=== PATIENT | female | born 1990 | race African-American/Black ===

== ENCOUNTER → 2016-09-25 | Outpatient (CLI) | payer MEDICAID ==
[~2016-09-25] MED LIST: ASPI81CH7 CHEW; BACT800T5 PO; IBUP-232 PO; IRON18TA2 PO; LABE300T PO; OXYC1TAB63 PO; PNVPAK
== END ==
LOC: HPND 13:14
PROVIDERS: ATTEND Obstetrics & Gynecology
DX: O36.60X0 Maternal care for excessive fetal growth, unspecified trimester, not applicable or unspecified (principal)
CPT/HCPCS: 76816

== ENCOUNTER 2016-10-07 12:26 | Observation (INO) | payer MEDICAID ==
[2016-10-07] VITALS (9 sets, daily range): BP systolic 128–141; BP diastolic 67–90; PULSE 76–92; RESP 18; TEMP 98.5
[~2016-10-07] VITALS: Ht 167.6 cm; Wt 94.8 kg
[~2016-10-07 12:26] MED LIST changes: -ASPI81CH7 CHEW; -IBUP-232 PO; -IRON18TA2 PO; -LABE300T PO; -OXYC1TAB63 PO; -PNVPAK
[2016-10-07 13:04] LABS: HEMATOCRIT 25.7 % (35.0-46.0); MEAN CELL VOLUME 83.4 FL (80.0-100.0); MEAN CORPUSCULAR HEMOGLOBIN 29.5 PG (27.0-34.0); MEAN CORPUSCULAR HGB CONC 35.4 % (32.0-36.0); PLATELET COUNT 141 TH/MM3 (150-450); RED BLOOD COUNT 3.08 MIL/MM3 (4.00-5.30); RED CELL DISTRIBUTION WIDTH 13.8 % (11.6-17.2); REVIEW FLAG FINAL; WHITE BLOOD COUNT 5.2 TH/MM3 (4.0-11.0)
[2016-10-07 13:19] LABS: BACTERIA, URINE RARE /hpf; BLOOD, URINE NEG (NEG); GLUCOSE,URINE NEG (NEG); KETONE, URINE NEG (NEG); NITRITE,URINE NEG (NEG); PH, URINE 7.5 (5.0-8.5); SQUAMOUS EPITHELIAL CELL URINE 3 /hpf (0-5); URINE COLOR YELLOW (YELLW/STRAW)
[2016-10-07 13:21] LABS: COMMENT (UR) CULT NOT INDICATED; CULTURE IF INDICATED CULT NOT INDICATED
[2016-10-07 13:36] LABS: ALKALINE PHOSPHATASE 85 U/L (45-117); ALT (GPT) 59 U/L (10-53); ANION GAP 9 MEQ/L (5-15); AST (GOT) 91 U/L (15-37); BLOOD UREA NITROGEN 3 MG/DL (7-18); CHLORIDE 104 MEQ/L (98-107); GLOMERULAR FILTRATION RATE 189 ML/MIN (>89); SODIUM (NA) 141 MEQ/L (136-145); TOTAL BILIRUBIN ADULT 0.2 MG/DL (0.2-1.0); URIC ACID 2.7 MG/DL (2.6-6.0)
[2016-10-07 13:39] LABS: POTASSIUM 2.7 MEQ/L (3.5-5.1)
[2016-10-07] MEDS ORDERED: ALUMINUM/MAGNESIUM/SIMETH 30 ML CUP PO PRN (14:00)
[2016-10-07] MEDS ORDERED: ONDANSETRON ODT 4 MG TAB PO PRN (14:00)
[2016-10-07] MEDS ORDERED: ZOLPIDEM TARTRATE 5 MG TAB PO PRN (14:00)
--- NOTE | 2016-10-07 14:10 | PD ---
HPI Chief Complaint elevated blood pressure, sent from OB office Date Seen: Oct 07, 2016 Time Seen: 14:00 Travel History International Travel<30 Days: No Contact w/Intl Traveler<30Days: No Known Affected Area: No History of Present Illness HPI Pt is a 26 y/o with IUP at 33w4d by GEORGE who presents from OB office for evaluation of elevated BP (140/92 in office). Pt reports intermittent mild headache past week, has very slight headache at present. Pt denies vision changes, ruq pain, swelling in fingers or face. She reports intermittent BH contractions. She denies vb, lof. +FM Para: 2 : 4 Miscarriage: 1 History Past Medical History Medical History: Denies Significant Hx Obstetric History Obstetric History 2008 FT at 40 wks for breech 2013 repeat CD at 37 wks for preeclampsia 2016 SAB at 13 wks Past Surgical History Narrative Surgical x 2 D+C Social History Alcohol Use: No Tobacco Use: No Substance Abuse: No Allergies-Medications (Allergen,Severity, Reaction): Coded Allergies: Tomato (Verified Allergy, Severe, HIVES, 11/25/15) Home Meds Active Scripts Sulfamethoxazole-Trimethoprim DS (Bactrim DS)1 Tab Tab1 Tab PO BID #6 TAB Prov:Amari Montemayor DO 11/25/15 Review of Systems General / Constitutional: No: Fever, Weight Gain, Weight Loss, Chills, Other Eyes: No: Diploplia, Blurred Vision, Visual changes, Pain, Photophobia, Other HENT: Headaches, No: Vertigo, Dental Difficulties, Lightheadedness, Other Cardiovascular: No: Irregular Rhythm, Chest Pain or Discomfort, Palpitations, Tachycardia, Syncope, Varicosities, Edema, Cyanosis, Other Respiratory: No: Cough, Short of Breath, Wheezing, Other Gastrointestinal: No: Nausea, Vomiting, Diarrhea, Abdominal Pain, Hematemesis, Hematochezia, Constipation, Changes in Bowel Habits, Indigestion, Loss of Appetite, Other Genitourinary: No: Urgency, Frequency, Dysuria, Nocturia, Hematuria, Decreased Urinary Output, Oliguria, Hesitancy, Dribbling, Incontinence, Pelvic Pain, Dyspareunia, Discharge, Menorrhagia, Vaginal Bleeding, Other Musculoskeletal: No: Limited ROM, Weakness, Cramping, Edema, Pain, Other Skin: No Rash, No Itching, No Dryness, No Lumps, No Change in Pigmentation, No Change in Nails, No Alopecia, No Lesions, No Breast Lumps, No Breast Tenderness , No Breast Swelling, No Other Neurologic: No: Weakness, Dizziness, Syncope, Focal Abnormalities, Coordination Problem, Headache, Slurred Speech, Seizures, Other Psychiatric: No: Anxiety, Depression, Suicidal Ideations, Disorder of Thought, Mood Disorder, Substance Abuse, Homicidal Ideation, Other Endocrine: No: Heat Intolerance, Cold Intolerance, Polydipsia, Polyuria, Other Hematologic/Lymphatic: No Easy Bruising, No Lymph Node Enlargement, No Other Physical Exam Vital Signs Date Time Temp Pulse Resp B/P Pulse Ox O2 Delivery O2 Flow Rate FiO2 10/07/16 13:15 76 131/77 10/07/16 13:00 78 131/78 10/07/16 12:47 80 133/80 Narrative GENERAL: Well-nourished, well-developed patient. SKIN: Warm and dry. HEAD: Normocephalic and atraumatic. EYES: No scleral icterus. No injection or drainage. ENT: No nasal drainage noted. Mucous membranes pink. Airway patent. NECK: Supple, trachea midline. No JVD. CARDIOVASCULAR: Regular rate and rhythm without murmurs, gallops, or rubs. RESPIRATORY: Breath sounds equal bilaterally. No accessory muscle use. ABDOMEN/GI: Abdomen soft, non-tender, bowel sounds present, no rebound, no guarding gravid GENITOURINARY: deferred Uterine Contractions: irritability FHT's: Category: [1-] Baseline: 120s Reactive: yes Variability: mod Decels: no EXTREMITIES: No cyanosis or edema. BACK: Nontender without obvious deformity. No CVA tenderness. NEUROLOGICAL: Awake and alert. Motor and sensory grossly within normal limits. Five out of 5 muscle strength in all muscle groups. Normal speech. 2+ patellar DTRs, no clonus Data Data Vital Signs Reviewed: Yes Orders Vital Signs (Adult) .ON ADMISSION (10/07/16 12:44) ^ Labor Status (10/07/16 12:44) Urinalysis - C+S If Indicated (10/07/16 12:44) ^ Non Stress Test (10/07/16 12:44) Cbc No Diff, Includes Plts (10/07/16 12:44) Comprehensive Metabolic Panel (10/07/16 12:44) Uric Acid (10/07/16 12:44) Ob (2e) Additional Admit Info (10/07/16 13:48) Place In Observation (10/07/16 ) Diet Regular Basic (10/07/16 Lunch) Vital Signs (Adult) MUSA.D1C-VJQPB AWAKE (10/07/16 13:49) ^ Heart MUSA.QSHIFT (10/07/16 13:49) ^ Heart MUSA.QD (10/07/16 13:49) Activity Bed Rest With Brp (10/07/16 13:49) Complete Blood Count With Diff (10/08/16 06:00) Hepatic Functional Panel (10/08/16 06:00) Creatinine Clearance (10/07/16 13:49) Total Protein 24hr Urine (10/07/16 13:49) Uric Acid (10/08/16 06:00) Acetaminophen (Tylenol) (10/07/16 14:00) Twunygck-Fka-Mczbp-Iron Prenat (Stuartna (10/08/16 09:00) Docusate Sodium (Colace) (10/08/16 09:00) Al-Mag Hy-Si 40-40-4 Mg/Ml Liq (Mag-Al P (10/07/16 14:00) Sodium Chloride 0.9% Flush (Ns Flush) (10/07/16 21:00) Sodium Chloride 0.9% Flush (Ns Flush) (10/07/16 14:00) Zolpidem (Ambien) (10/07/16 14:00) Ondansetron Odt (Zofran Odt) (10/07/16 14:00) Ondansetron Inj (Zofran Inj) (10/07/16 14:00) Ferrous Sulfate (Ferrous Sulfate) (10/07/16 21:00) Labs Laboratory Tests Test 10/07/16 10/07/16 12:35 12:43 Urine Color YELLOW Urine Turbidity CLEAR Urine pH 7.5 Urine Specific [place] 1.010 Urine Protein NEG Urine Glucose (UA) NEG Urine Ketones NEG Urine Occult Blood NEG Urine Nitrite NEG Urine Bilirubin NEG Urine Urobilinogen LESS THAN 2.0 Urine Leukocyte Esterase NEG Urine RBC LESS THAN 1 Urine WBC LESS THAN 1 Urine Squamous Epithelial 3 Cells Urine Bacteria RARE Microscopic Urinalysis Comment CULT NOT INDICATED White Blood Count 5.2 Red Blood Count 3.08 Hemoglobin 9.1 Hematocrit 25.7 Mean Corpuscular Volume 83.4 Mean Corpuscular Hemoglobin 29.5 Mean Corpuscular Hemoglobin 35.4 Concent Red Cell Distribution Width 13.8 Platelet Count 141 Mean Platelet Volume 9.5 Sodium Level 141 Potassium Level 2.7 Chloride Level 104 Carbon Dioxide Level 28.0 Anion Gap 9 Blood Urea Nitrogen 3 Creatinine 0.48 Estimat Glomerular Filtration 189 Rate Random Glucose 69 Uric Acid 2.7 Calcium Level 8.2 Total Bilirubin 0.2 Aspartate Amino Transf 91 (AST/SGOT) Alanine Aminotransferase 59 (ALT/SGPT) Alkaline Phosphatase 85 Total Protein 6.2 Albumin 2.6 MDM Medical Record Reviewed: Yes Narrative Course / MDM 26 y/o with IUP at 33.4 wks with mildly elevated blood pressures, h/o preeclampsia, and mildly low platelets at 141k (were also low from office 09/12, 138k) and mildly elevated liver enzymes will admit 23 hr obs for rule out preeclampsia repeat labs in am serial blood pressures and vital signs 24 hour urine initiated FHTs q shift, NST daily Dr. Steven aware of patient and plan of care Diagnosis Diagnosis: Primary Impression: 33 weeks gestation of Additional Impression: Elevated blood pressure affecting in third trimester, antepartum Condition: Stable Kalee Siddiqi MD Oct 07, 2016 14:10
[2016-10-07] MEDS: SODIUM CHLORIDE 0.9% FLUSH 5 ML FLUSH IVF SCH (21:00)
[2016-10-07] MEDS: FERROUS SULFATE 325 MG (65 MG ELEMENTAL IRON) TAB PO SCH (21:04)
[2016-10-08] VITALS (78 sets, daily range): BP systolic 125–139; BP diastolic 60–84; PULSE 70–96; RESP 16–18; TEMP 98.4–98.6
[2016-10-08 06:06] LABS: AUTOMATED NEUTROPHIL # 3.5 TH/MM3 (1.8-7.7); BASOPHIL % 0.3 % (0.0-2.0); EOSINOPHIL # 0.1 TH/MM3 (0-0.4); EOSINOPHIL % 1.3 % (0.0-4.0); HEMATOCRIT 24.8 % (35.0-46.0); HEMO FLAGS DIFF FINAL; LYMPH % 26.6 % (9.0-44.0); LYMPHOCYTE # 1.5 TH/MM3 (1.0-4.8); MEAN CELL VOLUME 83.3 FL (80.0-100.0); MEAN CORPUSCULAR HEMOGLOBIN 28.7 PG (27.0-34.0); MEAN CORPUSCULAR HGB CONC 34.5 % (32.0-36.0); MONO % 9.9 % (0.0-8.0); NEUT % 61.9 % (16.0-70.0); PLATELET COUNT 133 TH/MM3 (150-450); RED BLOOD COUNT 2.98 MIL/MM3 (4.00-5.30); WHITE BLOOD COUNT 5.6 TH/MM3 (4.0-11.0)
[2016-10-08 06:35] LABS: INDIRECT BILIRUBIN 0.1 MG/DL (0.0-0.8); TOTAL BILIRUBIN ADULT 0.2 MG/DL (0.2-1.0)
[2016-10-08] MEDS: SODIUM CHLORIDE 0.9% FLUSH 5 ML FLUSH IVF SCH ×2 (09:00→21:00)
[2016-10-08] MEDS: FERROUS SULFATE 325 MG (65 MG ELEMENTAL IRON) TAB PO SCH ×2 (09:00→20:58)
[2016-10-08] MEDS: MULTIVIT/MIN/PREN/FOL AC/IRON PRENATAL TAB PO SCH (10:07)
[2016-10-08] MEDS: DOCUSATE SODIUM 100 MG CAP PO SCH (10:07)
[2016-10-08 10:37] LABS: BICARBONATE 24.8 MEQ/L (21.0-32.0)
[2016-10-08 10:44] LABS: POTASSIUM 2.6 MEQ/L (3.5-5.1)
[2016-10-08 11:04] LABS: RETIC % 1.8 % (0.4-3.0); REVIEW FLAG FINAL
[2016-10-08 11:33] LABS: LDH SERUM 294 U/L (84-246)
[2016-10-08 11:59] LABS: FERRITIN 9 NG/ML (8-252); TRANSFERRIN IRON PROFILE 340 MG/DL (200-360)
[2016-10-08] MEDS: POTASSIUM CHLOR 10 MEQ PREMIX 100 ML IV SCH ×7 (12:13→23:11)
[2016-10-08] MEDS: LACTATED RINGER'S 1000 ML INJ 1,000 ML IV SCH ×2 (12:14→18:38)
[2016-10-08] MEDS: ONDANSETRON HCL 4 MG/2 ML VIAL IV PRN (13:22)
[2016-10-08 16:25] LABS: CREAT 24 TIMED 141.6 MG/DL; URINE TOTAL PROTEIN TIMED 29.5 MG/DL
[2016-10-08] MEDS ORDERED: IRON SUCROSE INJ 200 MG in SODIUM CHLORIDE 0.9% INJ 100 ML IV ONE (17:00)
[2016-10-08] MEDS: ACETAMINOPHEN 325 MG TAB PO PRN (18:39)
[2016-10-08 19:25] LABS: BICARBONATE 28.1 MEQ/L (21.0-32.0)
[2016-10-08 19:31] LABS: POTASSIUM 2.9 MEQ/L (3.5-5.1)
--- NOTE | 2016-10-08 20:04 | HHI.PR ---
Subjective Remarks Doing ok Small headache Good fm Objective Vital Signs Date Time Temp Pulse Resp B/P Pulse Ox O2 Delivery O2 Flow Rate FiO2 10/08/16 19:46 98.6 18 10/08/16 19:44 75 135/84 10/08/16 17:00 81 138/78 10/08/16 16:00 98.5 17 10/08/16 15:30 85 10/08/16 15:25 82 10/08/16 15:20 78 10/08/16 15:15 79 10/08/16 15:10 79 10/08/16 15:05 80 10/08/16 15:00 75 10/08/16 14:55 84 10/08/16 14:35 94 10/08/16 14:30 93 10/08/16 14:25 83 10/08/16 14:20 75 10/08/16 14:15 75 10/08/16 14:10 85 10/08/16 14:05 89 10/08/16 14:00 74 10/08/16 13:55 72 10/08/16 13:50 77 10/08/16 13:45 80 10/08/16 13:40 87 10/08/16 13:35 78 10/08/16 13:30 81 10/08/16 13:25 79 10/08/16 13:20 80 10/08/16 13:15 80 10/08/16 13:10 79 10/08/16 13:05 86 10/08/16 13:00 96 10/08/16 12:50 72 10/08/16 12:45 78 10/08/16 12:40 79 10/08/16 12:35 79 10/08/16 12:30 81 10/08/16 12:25 76 10/08/16 12:20 84 10/08/16 12:19 80 139/78 10/08/16 12:15 82 10/08/16 12:10 77 10/08/16 12:05 82 10/08/16 12:00 73 10/08/16 11:55 73 10/08/16 11:50 74 10/08/16 11:45 76 10/08/16 11:40 75 10/08/16 11:35 77 10/08/16 11:30 70 10/08/16 11:25 73 10/08/16 11:20 83 10/08/16 11:15 84 10/08/16 11:10 84 10/08/16 11:05 84 10/08/16 11:00 90 10/08/16 10:55 81 10/08/16 10:50 86 10/08/16 10:45 76 10/08/16 10:40 78 10/08/16 10:35 82 10/08/16 10:30 88 10/08/16 10:25 81 10/08/16 10:20 85 10/08/16 10:15 86 10/08/16 10:10 91 10/08/16 10:05 91 10/08/16 10:00 84 10/08/16 09:55 83 10/08/16 09:50 85 10/08/16 09:45 84 10/08/16 08:18 98.4 18 10/08/16 08:07 78 139/74 10/08/16 06:54 16 10/08/16 05:00 18 10/08/16 03:00 16 10/08/16 01:00 98.4 10/08/16 01:00 16 10/08/16 00:03 85 125/60 10/07/16 21:15 85 Result Diagram: 10/08/16 0511 10/08/16 1835 Other Results Chest is clear CV RRR Abd soft and gravid Ext No cc, small le edema Assessment and Plan Discussed Condition With IUP @ 33/4 Pre eclampsia concerned about her LFTs being elevated and her Plts are slg low. Hypokalemia, Will replace overnite and check in the am, Will also check her MG level Severe anemia will replace the fe IV. also the b12 is low. Freddy Steven MD Oct 08, 2016 20:04
[2016-10-09] MEDS: POTASSIUM CHLOR 10 MEQ PREMIX 100 ML IV SCH ×8 (00:11→23:13)
[2016-10-09 00:15] VITALS: BP 120/68; PULSE 80; RESP 18
[2016-10-09] MEDS: ACETAMINOPHEN 325 MG TAB PO PRN ×2 (01:07→08:05)
[2016-10-09] MEDS: LACTATED RINGER'S 1000 ML INJ 1,000 ML IV SCH ×2 (02:20→10:52)
[2016-10-09 06:04] LABS: AUTOMATED NEUTROPHIL # 3.1 TH/MM3 (1.8-7.7); BASOPHIL % 0.3 % (0.0-2.0); EOSINOPHIL # 0.1 TH/MM3 (0-0.4); EOSINOPHIL % 1.7 % (0.0-4.0); HEMATOCRIT 23.6 % (35.0-46.0); HEMO FLAGS DIFF FINAL; LYMPH % 28.1 % (9.0-44.0); LYMPHOCYTE # 1.5 TH/MM3 (1.0-4.8); MEAN CELL VOLUME 83.1 FL (80.0-100.0); MEAN CORPUSCULAR HEMOGLOBIN 29.6 PG (27.0-34.0); MEAN CORPUSCULAR HGB CONC 35.6 % (32.0-36.0); MONO % 12.6 % (0.0-8.0); NEUT % 57.3 % (16.0-70.0); PLATELET COUNT 122 TH/MM3 (150-450); RED BLOOD COUNT 2.84 MIL/MM3 (4.00-5.30); RED CELL DISTRIBUTION WIDTH 14.1 % (11.6-17.2); WHITE BLOOD COUNT 5.4 TH/MM3 (4.0-11.0)
[2016-10-09 06:34] LABS: ALKALINE PHOSPHATASE 75 U/L (45-117); ALT (GPT) 40 U/L (10-53); ANION GAP 8 MEQ/L (5-15); AST (GOT) 55 U/L (15-37); BICARBONATE 25.2 MEQ/L (21.0-32.0); BLOOD UREA NITROGEN 2 MG/DL (7-18); CHLORIDE 108 MEQ/L (98-107); GLOMERULAR FILTRATION RATE 215 ML/MIN (>89); SODIUM (NA) 141 MEQ/L (136-145); TOTAL BILIRUBIN ADULT 0.2 MG/DL (0.2-1.0)
[2016-10-09 06:35] LABS: POTASSIUM 2.9 MEQ/L (3.5-5.1)
--- NOTE | 2016-10-09 07:55 | HHI.PR ---
Subjective Remarks Doing ok Small headache Good fm, no RUC Has been vomiting once daily lately. No scotoma or RUQ pain. Objective Vital Signs Date Time Temp Pulse Resp B/P Pulse Ox O2 Delivery O2 Flow Rate FiO2 10/09/16 00:15 80 18 120/68 10/08/16 19:46 98.6 18 10/08/16 19:44 75 135/84 10/08/16 19:40 18 10/08/16 17:00 81 138/78 10/08/16 16:00 98.5 17 10/08/16 15:30 85 10/08/16 15:25 82 10/08/16 15:20 78 10/08/16 15:15 79 10/08/16 15:10 79 10/08/16 15:05 80 10/08/16 15:00 75 10/08/16 14:55 84 10/08/16 14:35 94 10/08/16 14:30 93 10/08/16 14:25 83 10/08/16 14:20 75 10/08/16 14:15 75 10/08/16 14:10 85 10/08/16 14:05 89 10/08/16 14:00 74 10/08/16 13:55 72 10/08/16 13:50 77 10/08/16 13:45 80 10/08/16 13:40 87 10/08/16 13:35 78 10/08/16 13:30 81 10/08/16 13:25 79 10/08/16 13:20 80 10/08/16 13:15 80 10/08/16 13:10 79 10/08/16 13:05 86 10/08/16 13:00 96 10/08/16 12:50 72 10/08/16 12:45 78 10/08/16 12:40 79 10/08/16 12:35 79 10/08/16 12:30 81 10/08/16 12:25 76 10/08/16 12:20 84 10/08/16 12:19 80 139/78 10/08/16 12:15 82 10/08/16 12:10 77 10/08/16 12:05 82 10/08/16 12:00 73 10/08/16 11:55 73 10/08/16 11:50 74 10/08/16 11:45 76 2/22/17 11:40 75 10/08/16 11:35 77 10/08/16 11:30 70 10/08/16 11:25 73 10/08/16 11:20 83 10/08/16 11:15 84 10/08/16 11:10 84 10/08/16 11:05 84 10/08/16 11:00 90 10/08/16 10:55 81 10/08/16 10:50 86 10/08/16 10:45 76 10/08/16 10:40 78 10/08/16 10:35 82 10/08/16 10:30 88 10/08/16 10:25 81 10/08/16 10:20 85 10/08/16 10:15 86 10/08/16 10:10 91 10/08/16 10:05 91 10/08/16 10:00 84 10/08/16 09:55 83 10/08/16 09:50 85 10/08/16 09:45 84 10/08/16 08:18 98.4 18 10/08/16 08:07 78 139/74 Result Diagram: 10/09/16 0510/09/16 05 Other Results Chest is clear CV RRR Abd is soft and NT Fundus is NT Ext no CCE DTRs are +1 Assessment and Plan Assessment and Plan IUP at 33/6 Severe hypokalemia Her Mg level is normal and I feel she is just really depleted. Will give 6 runs of K today and check later Elevated LFTs these are normalizing I do not believe this represents HELLP syndrome. Thrombocytopenia Will continue to follow. Her BPs are not elevated from the care and she did have mild preeclampsia with both of her pregnancies. Also she has no swelling even in her legs and her DTRs are barely +1. Severe anemia will continue the venofer for three days total. Freddy Steven MD Oct 09, 2016 07:55
[2016-10-09 08:00] VITALS: BP 128/66; PULSE 83; RESP 20; TEMP 98.8
[2016-10-09] MEDS: FERROUS SULFATE 325 MG (65 MG ELEMENTAL IRON) TAB PO SCH ×2 (08:36→21:24)
[2016-10-09] MEDS: MULTIVIT/MIN/PREN/FOL AC/IRON PRENATAL TAB PO SCH (08:36)
[2016-10-09] MEDS: DOCUSATE SODIUM 100 MG CAP PO SCH (08:36)
[2016-10-09] MEDS: CYANOCOBALAMIN 100 MCG TAB PO SCH (08:36)
[2016-10-09] MEDS: IRON SUCROSE INJ 200 MG in SODIUM CHLORIDE 0.9% INJ 100 ML IV SCH (08:36)
[2016-10-09] MEDS ORDERED: IRON SUCROSE INJ 200 MG in SODIUM CHLORIDE 0.9% INJ 100 ML IV SCH (09:00)
[2016-10-09] MEDS: SODIUM CHLORIDE 0.9% FLUSH 5 ML FLUSH IVF SCH ×2 (09:00→23:12)
[2016-10-09 13:12] VITALS: BP 137/81; PULSE 75; RESP 18
[2016-10-09 16:33] VITALS: BP 133/82; PULSE 78
[2016-10-09] MEDS: SODIUM CHLORIDE 0.9% FLUSH 5 ML FLUSH IVF PRN (18:37)
[2016-10-09 19:21] VITALS: BP 146/84; PULSE 84
[2016-10-09 19:22] VITALS: RESP 18; TEMP 98.7
[2016-10-10] VITALS (13 sets, daily range): BP systolic 123–151; BP diastolic 64–95; PULSE 79–135; RESP 16–18; TEMP 97.9–98.4
[2016-10-10] MEDS: POTASSIUM CHLOR 10 MEQ PREMIX 100 ML IV SCH ×8 (00:16→20:42)
[2016-10-10] MEDS: ONDANSETRON HCL 4 MG/2 ML VIAL IV PRN (02:19)
[2016-10-10] MEDS: SODIUM CHLORIDE 0.9% FLUSH 5 ML FLUSH IVF PRN (02:19)
[2016-10-10 07:04] LABS: AUTOMATED NEUTROPHIL # 3.9 TH/MM3 (1.8-7.7); BASOPHIL % 0.2 % (0.0-2.0); EOSINOPHIL % 0.8 % (0.0-4.0); HEMO FLAGS DIFF FINAL; LYMPH % 23.5 % (9.0-44.0); LYMPHOCYTE # 1.4 TH/MM3 (1.0-4.8); MEAN CORPUSCULAR HEMOGLOBIN 29.1 PG (27.0-34.0); MEAN CORPUSCULAR HGB CONC 35.1 % (32.0-36.0); MONO % 10.6 % (0.0-8.0); NEUT % 64.9 % (16.0-70.0); PLATELET COUNT 113 TH/MM3 (150-450); RED BLOOD COUNT 2.77 MIL/MM3 (4.00-5.30); RED CELL DISTRIBUTION WIDTH 13.9 % (11.6-17.2)
[2016-10-10 07:43] LABS: ALKALINE PHOSPHATASE 76 U/L (45-117); ALT (GPT) 39 U/L (10-53); ANION GAP 7 MEQ/L (5-15); AST (GOT) 47 U/L (15-37); BICARBONATE 26.5 MEQ/L (21.0-32.0); BLOOD UREA NITROGEN 1 MG/DL (7-18); CHLORIDE 108 MEQ/L (98-107); GLOMERULAR FILTRATION RATE 248 ML/MIN (>89); MAGNESIUM 1.7 MG/DL (1.5-2.5); POTASSIUM 3.1 MEQ/L (3.5-5.1); SODIUM (NA) 141 MEQ/L (136-145); TOTAL BILIRUBIN ADULT 0.1 MG/DL (0.2-1.0)
[2016-10-10] MEDS ORDERED: BETAMETHASONE SOD PHOS/ACETATE SUSP 30 MG/5 ML VIAL IM ONE (09:00)
[2016-10-10] MEDS: DOCUSATE SODIUM 100 MG CAP PO SCH (09:00)
[2016-10-10] MEDS: SODIUM CHLORIDE 0.9% FLUSH 5 ML FLUSH IVF SCH (10:49)
[2016-10-10] MEDS: MULTIVIT/MIN/PREN/FOL AC/IRON PRENATAL TAB PO SCH (10:49)
[2016-10-10] MEDS: CYANOCOBALAMIN 100 MCG TAB PO SCH (10:49)
[2016-10-10] MEDS: FERROUS SULFATE 325 MG (65 MG ELEMENTAL IRON) TAB PO SCH (10:49)
[2016-10-10] MEDS: IRON SUCROSE INJ 200 MG in SODIUM CHLORIDE 0.9% INJ 100 ML IV SCH (10:50)
[2016-10-10] MEDS: ACETAMINOPHEN 325 MG TAB PO PRN (12:04)
[2016-10-10] MEDS ORDERED: LACTATED RINGER'S 1000 ML INJ 1,000 ML IV SCH ×2 (18:45→21:01)
[2016-10-11] MEDS ORDERED: BETAMETHASONE SOD PHOS/ACETATE SUSP 30 MG/5 ML VIAL IM ONE (09:00)
[2016-10-11 09:35] VITALS: BP 155/87; PULSE 82; RESP 18; TEMP 98.2
[2016-10-11] MEDS: CYANOCOBALAMIN 100 MCG TAB PO SCH (09:43)
[2016-10-11] MEDS: FERROUS SULFATE 325 MG (65 MG ELEMENTAL IRON) TAB PO SCH (09:44)
[2016-10-11] MEDS: MULTIVIT/MIN/PREN/FOL AC/IRON PRENATAL TAB PO SCH (09:44)
[2016-10-11 10:39] LABS: AUTOMATED NEUTROPHIL # 9.3 TH/MM3 (1.8-7.7); BASOPHIL % 0.1 % (0.0-2.0); HEMATOCRIT 25.5 % (35.0-46.0); LYMPHOCYTE # 1.5 TH/MM3 (1.0-4.8); MEAN CELL VOLUME 83.5 FL (80.0-100.0); MEAN CORPUSCULAR HEMOGLOBIN 28.3 PG (27.0-34.0); MEAN CORPUSCULAR HGB CONC 33.9 % (32.0-36.0); MONO % 7.4 % (0.0-8.0); NEUT % 79.5 % (16.0-70.0); PLATELET COUNT 143 TH/MM3 (150-450); RED BLOOD COUNT 3.06 MIL/MM3 (4.00-5.30); RED CELL DISTRIBUTION WIDTH 14.3 % (11.6-17.2); WHITE BLOOD COUNT 11.6 TH/MM3 (4.0-11.0)
[2016-10-11 10:45] LABS: HEMO FLAGS AUTO DIFF
[2016-10-11 11:18] LABS: BANDS 11 % (0-6); METAMYELOCYTES 2 % (0-1); MYELOCYTES 1 % (0-0); NEUTROPHIL # MANUAL DIFF 10.6 TH/MM3 (1.8-7.7); POLYS (SEG NEUTROPHILS) 77 % (16-70); WBC DIFF SAMPLE 100
[2016-10-11 11:19] LABS: OVALOCYTES 1+ (NORMAL); PLATELET ESTIMATE SMEAR LOW (NORMAL); PLATELET MORPHOLOGY NORMAL (NORMAL); SCAN/DIFF FINAL DIFF MANUAL
[2016-10-11 11:20] LABS: ANION GAP 10 MEQ/L (5-15); AST (GOT) 46 U/L (15-37); BICARBONATE 23.5 MEQ/L (21.0-32.0); BLOOD UREA NITROGEN LESS THAN 1 MG/DL (7-18); CHLORIDE 108 MEQ/L (98-107); GLOMERULAR FILTRATION RATE 233 ML/MIN (>89); POTASSIUM 3.3 MEQ/L (3.5-5.1); SODIUM (NA) 141 MEQ/L (136-145)
[2016-10-11 11:23] LABS: ALKALINE PHOSPHATASE 86 U/L (45-117); ALT (GPT) 44 U/L (10-53); TOTAL BILIRUBIN ADULT 0.2 MG/DL (0.2-1.0)
[2016-10-11 12:43] VITALS: BP 145/83; PULSE 83
[2016-10-11] MEDS: ACETAMINOPHEN 325 MG TAB PO PRN (12:49)
[2016-10-11 12:50] VITALS: RESP 20
--- NOTE | 2016-10-11 12:54 | HHI.PR ---
Subjective Remarks Doing ok, feeling much better. Good fm, no RUC. No scotoma or RUQ pain. Objective Vital Signs Date Time Temp Pulse Resp B/P Pulse Ox O2 Delivery O2 Flow Rate FiO2 10/11/16 09:35 82 155/87 10/11/16 09:35 98.2 18 10/10/16 23:00 18 10/10/16 22:44 82 151/86 10/10/16 19:11 16 10/10/16 19:10 135 10/10/16 19:08 89 139/89 10/10/16 17:14 81 148/64 10/10/16 17:14 16 10/10/16 17:14 98.4 10/10/16 13:04 18 Result Diagram: 10/11/16 0941 10/11/16 0941 Other Results Chest is clear CV RRR Abd soft and NT Ext no cce DTR +1/2 Assessment and Plan Assessment and Plan IUP at 34/1 Severe hypokalemia Her Mg level is normal and I feel she is just really depleted. It is now almost normal and will check a level next week Thrombocytopenia , Pancytopenia I feel this was due to a virus and is now resolving nicely. Her BPs are not elevated from the care and she did have mild preeclampsia with both of her pregnancies. Again I feel the syndrome here was due to a virus causing diarrhea and vomiting prior to admission. She was very depleted and now is on the mend. Also she has no swelling even in her legs and her DTRs are barely +1. Severe anemia will continue the venofer for three days total. We will check her labs next week. Freddy Steven MD Oct 11, 2016 12:54
--- NOTE | 2016-10-11 13:00 | HHI.DCPOC ---
Discharge Care Plan Diagnosis: (1) Elevated blood pressure affecting in third trimester, antepartum (2) Viral syndrome Report Symptoms to Your Doctor -Temperate above 100.5 degrees -Redness, of incision or excessive or foul smelling drainage -Unusual pain or calf pain -Increased vaginal bleeding -Painful or difficulty urinating -Feelings of extreme sadness or anxiety after 2 weeks Goals to Promote Your Health * To prevent worsening of your condition and complications * To maintain your health at the optimal level Directions to Meet Your Goals Take your medications as prescribed Follow your dietary instruction Follow activity as directed Ensure plenty of rest for recovery Drink fluids for hydration Keep your appointments as scheduled Take your immunizations and boosters as scheduled If your symptoms worsen call your PCP, if no PCP go to Urgent Care Center or Emergency Room Smoking is Dangerous to Your Health. Avoid second hand smoke Call the 24-hour crisis hotline for domestic abuse at Freddy Steven MD Oct 11, 2016 13:00
== END 2016-10-11 16:07 | disposition home or self-care (01) ==
LOC: HOBED 12:26 → H2EA 13:56 → OBSVTOIN 10-08 20:08 → INTOOBSV 10-08 20:08
PROVIDERS: ADMIT Obstetrics & Gynecology; ATTEND Obstetrics & Gynecology
DX: O26.893 Other specified pregnancy related conditions, third trimester (principal); R03.0 Elevated blood-pressure reading, without diagnosis of hypertension; Z3A.33 33 weeks gestation of pregnancy; R51 Headache; O99.013 Anemia complicating pregnancy, third trimester; O99.283 Endocrine, nutritional and metabolic diseases complicating pregnancy, third trimester; D69.6 Thrombocytopenia, unspecified; E87.6 Hypokalemia; R11.10 Vomiting, unspecified
CPT/HCPCS: 36415; 59025; 76819; 80048; 80053; 80074; 80076; 81001; 82575; 82607; 82728; 82746; 82747; 83010; 83540; 83550; 83615; 83735; 84132; 84157; 84550; 85007; 85025; 85027; 85044; 99284; G0378; J0702; J1756; J2405; J3480; J7120

== ENCOUNTER → 2016-10-30 | Outpatient (CLI) | payer MEDICAID ==
[~2016-10-30] MED LIST changes: +ASPI81CH7 CHEW; +IBUP-232 PO; +IRON18TA2 PO; +LABE300T PO; +OXYC1TAB63 PO; +PNVPAK
== END ==
LOC: HPND 08:06
PROVIDERS: ATTEND Obstetrics & Gynecology
DX: O36.60X0 Maternal care for excessive fetal growth, unspecified trimester, not applicable or unspecified (principal)
CPT/HCPCS: 76816

== ENCOUNTER 2016-11-17 09:21 | Inpatient (IN) | payer MEDICAID ==
[~2016-11-17] VITALS: Ht 167.6 cm; Wt 99.3 kg
[2016-11-17] VITALS (17 sets, daily range): BP systolic 139–171; BP diastolic 82–103; PULSE 61–89; RESP 16–18; TEMP 97.7–98.5; O2SAT 96–99
[~2016-11-17 09:21] MED LIST changes: -ASPI81CH7 CHEW; -IBUP-232 PO; -IRON18TA2 PO; -LABE300T PO; -OXYC1TAB63 PO; -PNVPAK
[2016-11-17] MEDS ORDERED: LACTATED RINGER'S 1000 ML IV SCH (10:30)
[2016-11-17] MEDS ORDERED: CITRIC ACID-SODIUM CITRATE LIQ 30 ML UDC PO SCH (10:30)
[2016-11-17] MEDS ORDERED: ceFAZolin 2 GM PREMIX 50 ML IV SCH (10:30)
[2016-11-17] MEDS ORDERED: LACTATED RINGER'S 1000 ML IV ONE (10:30)
[2016-11-17 11:05] LABS: AUTOMATED NEUTROPHIL # 3.8 TH/MM3 (1.8-7.7); BASOPHIL % 0.2 % (0.0-2.0); EOSINOPHIL % 0.3 % (0.0-4.0); HEMATOCRIT 30.7 % (35.0-46.0); HEMO FLAGS DIFF FINAL; LYMPHOCYTE # 1.5 TH/MM3 (1.0-4.8); MEAN CELL VOLUME 86.1 FL (80.0-100.0); MEAN CORPUSCULAR HEMOGLOBIN 29.1 PG (27.0-34.0); MEAN CORPUSCULAR HGB CONC 33.8 % (32.0-36.0); MONO % 9.7 % (0.0-8.0); NEUT % 63.8 % (16.0-70.0); PLATELET COUNT 146 TH/MM3 (150-450); RED BLOOD COUNT 3.56 MIL/MM3 (4.00-5.30); RED CELL DISTRIBUTION WIDTH 15.5 % (11.6-17.2); WHITE BLOOD COUNT 5.9 TH/MM3 (4.0-11.0)
[2016-11-17 11:15] LABS: BACTERIA, URINE RARE /hpf; BLOOD, URINE NEG (NEG); GLUCOSE,URINE NEG (NEG); KETONE, URINE NEG (NEG); MUCUS URINE FEW /lpf (OCC); NITRITE,URINE NEG (NEG); SQUAMOUS EPITHELIAL CELL URINE 1 /hpf (0-5); TRANSITIONAL EPI CELLS, URINE <1 /hpf; URINE COLOR YELLOW (YELLW/STRAW)
[2016-11-17 11:28] LABS: COMMENT (UR) CULT NOT INDICATED; CULTURE IF INDICATED CULT NOT INDICATED
[2016-11-17] MEDS ORDERED: IRON18TA2 PO (11:31)
[2016-11-17] MEDS ORDERED: ASPI81CH7 CHEW (11:31)
[2016-11-17] MEDS ORDERED: PNVPAK (11:31)
[2016-11-17] MEDS ORDERED: MORPHINE SULFATE PF 5 MG/10 ML VIAL ONE (11:49)
[2016-11-17] MEDS ORDERED: ONDANSETRON HCL 4 MG/2 ML VIAL ONE ×2 (11:49→15:35)
[2016-11-17] MEDS ORDERED: OXYTOCIN 10 UNIT/ML AMP ONE (11:49)
[2016-11-17] MEDS ORDERED: PROPOFOL 200 MG/20 ML AMP OTHER ONE (12:35)
[2016-11-17] MEDS ORDERED: LACTATED RINGER'S 1000 ML INJ 1,000 ML IV ONE (12:35)
[2016-11-17] MEDS ORDERED: SIMETHICONE 80 MG CHEWABLE TAB PO PRN (14:30)
[2016-11-17] MEDS ORDERED: oxyCODONE/ACETAMINOPHEN 5 MG/325 MG TAB PO PRN (14:30)
[2016-11-17] MEDS ORDERED: ZOLPIDEM TARTRATE 5 MG TAB PO PRN (14:30)
[2016-11-17] MEDS ORDERED: OXYTOCIN 30 UNITS-500ML PREMIX 500 ML IV ONE ×2 (14:30)
[2016-11-17] MEDS ORDERED: SODIUM CHLORIDE 0.9% FLUSH 10 ML FLUSH IV FLUSH PRN (14:30)
[2016-11-17] MEDS ORDERED: ONDANSETRON HCL 4 MG/2 ML VIAL IV PUSH PRN (14:30)
[2016-11-17] MEDS ORDERED: OXYTOCIN 30 UNITS-500ML PREMIX 500 ML ONE (15:35)
[2016-11-17] MEDS ORDERED: EPIDURAL-NO SYSTEMIC NARCOTICS PRN (17:30)
[2016-11-17] MEDS ORDERED: EPIDURAL-NALOXONE HCL 0.4 MG/ML AMP IV PRN (17:30)
[2016-11-17] MEDS ORDERED: EPIDURAL-DO NOT ADMINISTER ANTICOAGULANTS PRN (17:30)
[2016-11-17] MEDS ORDERED: EPIDURAL-DIPHENHYDRAMINE HCL 50 MG CAP PO PRN (17:30)
[2016-11-17] MEDS ORDERED: EPIDURAL-DIPHENHYDRAMINE HCL 50 MG/ML VIAL IV PUSH PRN (17:30)
[2016-11-17] MEDS ORDERED: PROCHLORPERAZINE INJ 10 MG/2 ML VIAL IM PRN (18:30)
[2016-11-17] MEDS ORDERED: LACTATED RINGER'S 1000 ML INJ 1,000 ML IV SCH (19:23)
[2016-11-17] MEDS ORDERED: SODIUM CHLORIDE 0.9% FLUSH 10 ML FLUSH IV FLUSH SCH (21:00)
[2016-11-18] VITALS (12 sets, daily range): BP systolic 139–173; BP diastolic 78–104; PULSE 58–78; RESP 16–20; TEMP 98–98.9
[2016-11-18] MEDS ORDERED: OXYTOCIN 30 UNITS-500ML PREMIX 500 ML IV PRN (00:30)
[2016-11-18 04:57] LABS: AUTOMATED NEUTROPHIL # 9.4 TH/MM3 (1.8-7.7); BASOPHIL % 0.2 % (0.0-2.0); HEMATOCRIT 30.7 % (35.0-46.0); HEMO FLAGS DIFF FINAL; LYMPH % 10.9 % (9.0-44.0); LYMPHOCYTE # 1.2 TH/MM3 (1.0-4.8); MEAN CELL VOLUME 85.6 FL (80.0-100.0); MEAN CORPUSCULAR HEMOGLOBIN 28.2 PG (27.0-34.0); MEAN CORPUSCULAR HGB CONC 32.9 % (32.0-36.0); MONO % 6.2 % (0.0-8.0); NEUT % 82.7 % (16.0-70.0); PLATELET COUNT 135 TH/MM3 (150-450); RED BLOOD COUNT 3.59 MIL/MM3 (4.00-5.30); RED CELL DISTRIBUTION WIDTH 15.4 % (11.6-17.2); WHITE BLOOD COUNT 11.4 TH/MM3 (4.0-11.0)
[2016-11-18] MEDS: oxyCODONE/ACETAMINOPHEN 5 MG/325 MG TAB PO PRN ×4 (06:04→21:40)
[2016-11-18] MEDS: IBUPROFEN 600 MG TAB PO PRN ×3 (06:04→17:39)
--- NOTE | 2016-11-18 08:50 | MH ---
cc: Freddy FAIR DATE OF ADMISSION 11/17/2016 PREOPERATIVE DIAGNOSIS 1. Intrauterine at 39+ weeks 2. Previous section x2 HISTORY OF PRESENT ILLNESS Ms. Fernandez is a 26-year-old female para 2-0-1-2 who is at 39+ weeks. She has had previous two sections and desires a repeat. She is being brought to the operating theater for that surgery. She understands the risks and benefits and has agreed to proceed. PAST OB HISTORY She is para 2-0-1-2. She has a two sections and she had one miscarriage. 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 Her CP and GC were negative as well. PAST SURGICAL HISTORY Remarkable for: 1. section x2. 2. D&E for a missed AB PAST MEDICAL HISTORY Remarkable for: 1. Preeclampsia in her previous pregnancies. 2. Anemia SOCIAL HISTORY She lives with her spouse. She is . She does not smoke, drink or take drugs. FAMILY HISTORY Her family history is negative. ALLERGIES No known drug allergies. MEDICATIONS 1. Aspirin 81 mg one p.o. q. day 2. Iron one p.o. q. day 3. Vitamins one p.o. q. day. REVIEW OF SYSTEMS No headaches, no shortness of breath. No chest pain. No swelling. No rupture of membranes or bleeding. Her baby is moving well. PHYSICAL EXAM Her physical exam reveals a well-developed, well-nourished female in no acute distress. HEENT: Normocephalic, atraumatic. CHEST: Clear to auscultation. HEART: Regular rate and rhythm without murmur. ABDOMEN: Gravid and nontender. The scar is barely visible. EXTREMITIES: There is no clubbing, cyanosis or edema. ASSESSMENT/PLAN 1. Intrauterine at 39+ weeks for repeat section. Take her to the operating room and perform that. 2. History of preeclampsia. She has been on aspirin the entire . We will watch her blood pressures carefully. She needed to take labetalol with a previous pregnancies in the period and we will keep an eye on her blood pressures. 3. Positive GBS. She was treated with Ancef preoperatively. R. MD LASHAE France/DK /8:31 AM /8:37 AM
[2016-11-18] MEDS ORDERED: LABETALOL HCL 100 MG TAB PO SCH (09:00)
[2016-11-18] MEDS: DOCUSATE SODIUM 50 MG/SENNA 8.6 MG TAB PO PRN (12:11)
--- NOTE | 2016-11-18 13:28 | HHI.OB ---
Subjective Post Operative Day: 1 Objective Vitals/I&O Vital Signs Date Time Temp Pulse Resp B/P Pulse Ox O2 Delivery O2 Flow Rate FiO2 11/18/16 10:41 61 151/90 11/18/16 09:38 58 162/88 11/18/16 07:45 98.1 11/18/16 07:45 72 16 160/82 11/18/16 05:30 139/78 11/18/16 04:30 98.2 11/18/16 04:30 77 18 156/104 11/18/16 00:30 60 16 150/87 11/18/16 00:30 98.9 11/17/16 20:00 97.7 11/17/16 20:00 71 16 153/86 11/17/16 17:20 156/89 11/17/16 17:20 16 11/17/16 17:20 69 11/17/16 16:15 98.5 16 11/17/16 16:15 63 155/95 11/17/16 15:45 71 18 145/83 99 11/17/16 15:15 97 11/17/16 15:15 66 18 146/82 11/17/16 15:13 61 18 96 11/17/16 15:13 153/88 11/17/16 15:00 69 18 99 11/17/16 14:59 160/89 11/17/16 14:45 68 18 171/102 97 11/17/16 14:35 171/103 11/17/16 14:26 97.9 63 18 152/82 98 Result Diagram: 11/18/16 0449 Objective Remarks GENERAL: Well-nourished, well-developed patient. CARDIOVASCULAR: Regular rate and rhythm without murmurs, gallops, or rubs. RESPIRATORY: Breath sounds equal bilaterally. No accessory muscle use. ABDOMEN/GI: Abdomen soft, non-tender, bowel sounds present. Incision: DRESSING, Clean, dry and intact. Fundus: Firm, non-tender at umbilicus. GENITOURINARY: Light to moderate bleeding. EXTREMITIES: No cyanosis or edema, non-tender, without signs of DVT. Medications and IVs Current Medications Medications (Trade) Dose Ordered Sig/Carol Route Start Time Stop Time Status Last Admin Lactated Ringer's 1,000 ml @ 150 mls/hr Q6H40M IV 11/17/16 10:30 11/17/16 11:15 (Lr 1000 ml Inj) 1,000 ml @ 100 mls/hr Q10H IV 11/17/16 19:23 11/18/16 15:22 11/17/16 21:49 (NS Flush) 2 ml BID IV FLUSH 11/17/16 21:00 (NS Flush) 2 ml UNSCH PRN IV FLUSH 11/17/16 14:30 (Mylicon Chew) 80 mg QID PRN PO 11/17/16 14:30 (Motrin) 600 mg Q6H PRN PO 11/17/16 14:30 11/18/16 12:10 (Percocet 5-325 Mg) 1 tab Q4H PRN PO 11/17/16 14:30 11/18/16 12:10 (Percocet 5-325 Mg) 2 tab Q4H PRN PO 11/17/16 14:30 (Jennifer-Colace) 2 tab Q12H PRN PO 11/17/16 14:30 11/18/16 12:11 (Ambien) 5 mg HS PRN PO 11/17/16 14:30 (M-M-R Ii Inj) 0.5 ml ONCE ONCE SQ 11/18/16 16:00 11/18/16 16:01 (Boostrix Inj) 0.5 ml ONCE ONCE IM 11/18/16 16:00 11/18/16 16:01 (Zofran Inj) 4 mg Q6H PRN IV PUSH 11/17/16 14:30 11/17/16 15:36 Miscellaneous Information NO SYSTEMIC NARCOTICS TO BE GIVEN FO... UNSCH PRN .XX 11/17/16 17:30 11/18/16 17:29 (Narcan Inj) 0.4 mg UNSCH PRN IV 11/17/16 17:30 11/18/16 17:29 (Benadryl Inj) 25 mg Q6H PRN IV PUSH 11/17/16 17:30 11/18/16 17:29 (Benadryl) 50 mg Q6H PRN PO 11/17/16 17:30 11/18/16 17:29 Miscellaneous Information ALL NURSING DEPARTMENTS UNSCH PRN .XX 11/17/16 17:30 11/18/16 17:29 (Compazine Inj) 10 mg BID PRN IM 11/17/16 18:30 11/17/16 19:09 (Trandate) 100 mg Q12HR PO 11/18/16 09:00 11/18/16 08:47 Assessment/Plan Problem List: (1) S/P repeat low transverse Plan: ROUTINE (2) Anemia Plan: DAILY IRON PP (3) Gestational hyperglycemia Plan: START ON LABETALOL, MONITOR Assessment and Plan POD #1 REPEAT C/S PT DOING WELL BP ELEVATED, WILL START ON LABETALOL PAIN WELL MANAGED AMBULATION ENCOURAGED TODAY ROUTINE Discharge Planning CONSIDER DC HOME IN 1-2 DAYS Yolanda Stroud Nov 18, 2016 13:28
--- NOTE | 2016-11-18 13:39 | HHI.DCPOC ---
Discharge Care Plan Diagnosis: (1) Anemia (2) S/P repeat low transverse (3) Gestational hypertension Your Health Problems Are: delivery Additional Problems WILL NEED TO TAKE DAILY ORAL IRON ONCE YOU ARE NO LONGER TAKING PAIN MEDICATION Report Symptoms to Your Doctor -Temperate above 100.5 degrees -Redness, of incision or excessive or foul smelling drainage -Unusual pain or calf pain -Increased vaginal bleeding -Painful or difficulty urinating -Feelings of extreme sadness or anxiety after 2 weeks Goals to Promote Your Health * To prevent worsening of your condition and complications * To maintain your health at the optimal level Directions to Meet Your Goals Take your medications as prescribed Follow your dietary instruction Follow activity as directed Ensure plenty of rest for recovery Drink fluids for hydration Keep your appointments as scheduled Take your immunizations and boosters as scheduled If your symptoms worsen call your PCP, if no PCP go to Urgent Care Center or Emergency Room Smoking is Dangerous to Your Health. Avoid second hand smoke Call the 24-hour crisis hotline for domestic abuse at Yolanda Stroud Nov 18, 2016 13:39
[2016-11-18] MEDS ORDERED: DIPHTH/TETANUS/ACEL PERTUSSIS (BOOSTER) 0.5 ML VIAL/PFS IM ONE (16:00)
[2016-11-18] MEDS ORDERED: MEASLES, MUMPS, RUBELLA VACCINE 0.5 ML VIAL SQ ONE (16:00)
[2016-11-18] MEDS ORDERED: OXYC1TAB63 PO (17:43)
[2016-11-18] MEDS ORDERED: IBUP-232 PO (17:43)
[2016-11-18] MEDS ORDERED: LABETALOL HCL 100 MG/20 ML VIAL IV PUSH PRN (17:45)
[2016-11-18] MEDS ORDERED: NIFEdipine 10 MG CAP PO PRN (17:45)
[2016-11-18] MEDS ORDERED: CALCIUM GLUCONATE 10% 1 GM/10 ML VIAL IV PUSH PRN (17:45)
[2016-11-18] MEDS ORDERED: NIFEdipine 20 MG CAP PO PRN ×2 (17:45)
[2016-11-18] MEDS: LABETALOL HCL 100 MG TAB PO SCH (21:41)
[2016-11-19 00:30] VITALS: BP 142/88; PULSE 77; RESP 18; TEMP 98.5
[2016-11-19] MEDS: IBUPROFEN 600 MG TAB PO PRN ×4 (00:49→20:28)
[2016-11-19] MEDS: oxyCODONE/ACETAMINOPHEN 5 MG/325 MG TAB PO PRN ×4 (00:50→20:29)
[2016-11-19 06:00] VITALS: BP 154/89; PULSE 69; RESP 18
[2016-11-19] MEDS: DOCUSATE SODIUM 50 MG/SENNA 8.6 MG TAB PO PRN (06:18)
[2016-11-19 08:40] VITALS: BP 149/82; PULSE 66; RESP 18; TEMP 98.1
[2016-11-19] MEDS: LABETALOL HCL 100 MG TAB PO SCH ×2 (08:47→20:29)
--- NOTE | 2016-11-19 11:38 | HHI.OB ---
Subjective Post Operative Day: 2 Objective Vitals/I&O Vital Signs Date Time Temp Pulse Resp B/P Pulse Ox O2 Delivery O2 Flow Rate FiO2 11/19/16 08:40 98.1 66 18 149/82 11/19/16 06:00 69 18 154/89 11/19/16 00:30 98.5 77 18 142/88 11/18/16 21:00 98.0 78 20 150/87 11/18/16 18:21 76 11/18/16 18:10 153/87 11/18/16 16:27 98.6 18 11/18/16 16:00 169/90 11/18/16 15:55 70 173/103 Result Diagram: 11/18/16 0449 Objective Remarks GENERAL: Well-nourished, well-developed patient. CARDIOVASCULAR: Regular rate and rhythm without murmurs, gallops, or rubs. RESPIRATORY: Breath sounds equal bilaterally. No accessory muscle use. ABDOMEN/GI: Abdomen soft, non-tender, bowel sounds present. Incision: Clean, dry and intact. Fundus: Firm, non-tender at umbilicus. GENITOURINARY: Light to moderate bleeding. EXTREMITIES: No cyanosis or edema, non-tender, without signs of DVT. Medications and IVs Current Medications Medications (Trade) Dose Ordered Sig/Carol Route Start Time Stop Time Status Last Admin (Lr 1000 ml Inj) 1,000 ml @ 150 mls/hr Q6H40M IV 11/17/16 10:30 11/17/16 11:15 (NS Flush) 2 ml BID IV FLUSH 11/17/16 21:00 (NS Flush) 2 ml UNSCH PRN IV FLUSH 11/17/16 14:30 (Mylicon Chew) 80 mg QID PRN PO 11/17/16 14:30 (Motrin) 600 mg Q6H PRN PO 11/17/16 14:30 11/19/16 06:19 (Percocet 5-325 Mg) 1 tab Q4H PRN PO 11/17/16 14:30 11/19/16 06:20 (Percocet 5-325 Mg) 2 tab Q4H PRN PO 11/17/16 14:30 (Jennifer-Colace) 2 tab Q12H PRN PO 11/17/16 14:30 11/19/16 06:18 (Ambien) 5 mg HS PRN PO 11/17/16 14:30 (Zofran Inj) 4 mg Q6H PRN IV PUSH 11/17/16 14:30 11/17/16 15:36 (Compazine Inj) 10 mg BID PRN IM 11/17/16 18:30 11/17/16 19:09 (Calcium Gluconate Inj) 1 gm UNSCH PRN IV PUSH 11/18/16 17:45 (Trandate) 200 mg Q12HR PO 11/18/16 21:00 11/19/16 08:47 Assessment/Plan Problem List: (1) S/P repeat low transverse Plan: routine (2) Anemia Plan: DAILY IRON PP (3) Gestational hypertension Plan: CONTINUE TO MONITOR Assessment and Plan POD #2 REPEAT C/S PT DOING WELL BP ELEVATED, STABLE DENIES [place] OR VISUAL CHANGES PAIN WELL MANAGED WITH ORAL PAIN MEDICATION AMBULATING WELL IN ROOM ROUTINE POST OP CARE Discharge Planning CONSIDER DC HOME TOMORROW Yolanda Stroud Nov 19, 2016 11:38
--- NOTE | 2016-11-19 11:46 | HHI.DS ---
Admission Date Nov 17, 2016 at 10:04 Discharge Date: Nov 20, 2016 Admitting Diagnosis 39 + WEEK IUP PREVIOUS C SECTION HISTORY PRE-ECLAMPSIA Diagnosis: (1) S/P repeat low transverse Diagnosis: Principal (2) Anemia Diagnosis: Secondary Delivery Date: Nov 17, 2016 : Repeat Reason: PREVIOUS C/SECTION : Male Brief History 39 WEEK IUP PREVIOUS C/SECTION HISTORY OF PRE ECLAMPSIA REPEAT C SECTION Hospital Course REPEAT C SECTION ELEVATION IN BP, STARTED ON LABETALOL ROUTINE POST OP CARE Pt Condition on Discharge: Good Discharge Disposition: Discharge Home Discharge Instructions Diet Instructions: As Tolerated, No Restrictions Additional Diet Instructions: Drink at least 8 - 16 oz bottles of water a day Activities You Can Perform: Shower Only-No Bath Activities to Avoid: Prolonged Standing, Strenuous Activity, Sexual Activity Additional Activity Instruc.: No driving until off pain medications Do not lift anything heavier than your baby in an infant carrier Follow up Referrals: [employer] - [address] [facility] [place] New Medications: Ibuprofen (Ibuprofen) 600 Mg Tab 600 MG PO Q6H Pain Management #30 Ref 1 TAB Oxycodone-Acetaminophen (Oxycodone-Acetaminophen) 5-325 mg Tab 1 TAB PO Q4H moderate pain #30 TAB Continued Medications: W/O Vit A W/ Fe Carbo (Pnv Ob+Dha 27-1 & 250 mg) 1 Toan Toan 1 Discontinued Medications: Aspirin (Aspirin Children's) 81 Mg Chew 81 MG CHEW DAILY Ref 0 TAB Ferrous Fumarate (Iron) 18 Mg Tab 18 MG PO BID Nutritional Supplement Ref 0 TAB Yolanda Stroud Nov 19, 2016 11:46
[2016-11-19 14:59] VITALS: BP 149/81; PULSE 63; RESP 6
[2016-11-19 20:30] VITALS: BP 152/87; PULSE 76; RESP 20; TEMP 99.3
[2016-11-19 21:30] VITALS: BP 155/70; PULSE 79; PULSE 83; RESP 20
[2016-11-20] MEDS: IBUPROFEN 600 MG TAB PO PRN ×2 (02:27→09:20)
[2016-11-20] MEDS: oxyCODONE/ACETAMINOPHEN 5 MG/325 MG TAB PO PRN (02:27)
[2016-11-20 08:30] VITALS: BP 168/92; PULSE 72; RESP 18; TEMP 98.7
[2016-11-20] MEDS ORDERED: LABETALOL HCL 300 MG TAB PO SCH (09:00)
[2016-11-20] MEDS ORDERED: LACTATED RINGER'S 1000 ML INJ 1,000 ML IV SCH (10:00)
[2016-11-20] MEDS ORDERED: NIFEdipine 20 MG CAP PO PRN ×4 (10:00→10:15)
[2016-11-20] MEDS ORDERED: CALCIUM GLUCONATE 10% 1 GM/10 ML VIAL IV PUSH PRN (10:00)
[2016-11-20] MEDS ORDERED: NIFEdipine 10 MG CAP PO PRN ×2 (10:00→10:15)
--- NOTE | 2016-11-20 10:45 | MP ---
cc: NATHAN FAIR DATE OF SURGERY November 17, 2016 PREOPERATIVE DIAGNOSES 1. Intrauterine at 39+ weeks 2. Desires repeat section. 3. History of section x 2. POSTOPERATIVE DIAGNOSES 1. Intrauterine at 39+ weeks 2. Desires repeat section. 3. History of section x 2. 4. Pelvic adhesions. ANESTHESIA Spinal SURGEON Freddy Fair MD [employer] Connie Solis, M3. FINDINGS A gravid uterus with a viable male , Apgars 8 and 9, weight 7 pounds, 14 ounces. There were some adhesions to the anterior uterine wall from the omentum which were taken down and Interceed placed. The tubes and ovaries and posterior cul-de-sac were all normal. COMPLICATIONS None. COUNTS Correct. ESTIMATED BLOOD LOSS 500 cc. FLUIDS Crystalloids. CONDITION The patient tolerated the procedure well and went to the recovery room in good condition. PROCEDURE The patient was taken to the operating room identified by name band and verbally, given a spinal anesthetic. She was prepped and draped in the usual sterile fashion and a Major catheter inserted and a time-out was taken. The old Pfannenstiel incision was excised and the incision was taken down to the fascia. The fascia was taken off the rectus muscles by blunt and sharp dissection. Small bleeders were coagulated with the Bovie. The rectus muscles were spread bluntly and the peritoneum entered without incident. The incision was extended with care to avoid the urinary bladder. The bladder blade was placed and a bladder flap was created in the usual fashion. There was quite a bit of scar tissue around this area. Also noted was that there was some adhesions from the omentum to the anterior uterine wall. The uterus was then incised in a transverse manner along the lower uterine segment and the incision taken down in the midline until the uterine cavity was entered. Clear fluid was noted and the incision was extended with the surgeon's fingers. We attempted to deliver the baby, however, we were having some difficulty so a kiwi vacuum extractor was used and with gentle fundal pressure the baby was easily delivered. The cord clamping was delayed 45 seconds. The cord was doubly clamped and cut and the baby handed to the resuscitation team that was present. The placenta was then removed manually after a cord blood was obtained and the uterus curettaged twice with a wet lap. The uterus was delivered from the abdomen and the uterine incision was repaired with 0 Vicryl in a running fashion in two layers the second layer imbricating the first. The cul-de-sac and gutters were cleaned of blood and debris. The adhesions around the omentum to the anterior uterus were taken down by sharp and blunt dissection with good results and the uterus was delivered back into the abdomen and a piece of Interceed was placed over the raw area where we took down the omentum. The rectus muscles were then reapproximated with 0 Vicryl in a running fashion. The fascia was repaired with 0 Vicryl from lateral to midline bilaterally. Subcu was repaired with 3-0 Vicryl. The skin was repaired with 4-0 Monocryl in subcuticular fashion. The patient tolerated the procedure well, went to the recovery room in good condition. R. MD GIFTY FranceV/ANI /8:25 AM /10:25 AM
[2016-11-20 11:30] VITALS: BP 142/81
[2016-11-20] MEDS ORDERED: LABE300T PO (13:22)
--- NOTE | 2016-11-20 13:49 | HHI.OB ---
Subjective Post Operative Day: 3 Objective Vitals/I&O Vital Signs Date Time Temp Pulse Resp B/P Pulse Ox O2 Delivery O2 Flow Rate FiO2 11/20/16 11:30 142/81 11/20/16 08:30 98.7 72 18 168/92 11/19/16 21:30 79 155/70 11/19/16 21:30 83 20 11/19/16 20:30 99.3 20 11/19/16 20:30 76 152/87 11/19/16 14:59 63 6 11/19/16 14:59 149/81 Result Diagram: 11/18/16 0449 Objective Remarks GENERAL: Well-nourished, well-developed patient. CARDIOVASCULAR: Regular rate and rhythm without murmurs, gallops, or rubs. RESPIRATORY: Breath sounds equal bilaterally. No accessory muscle use. ABDOMEN/GI: Abdomen soft, non-tender, bowel sounds present. Incision: Clean, dry and intact. Fundus: Firm, non-tender at umbilicus. GENITOURINARY: Light to moderate bleeding. EXTREMITIES: No cyanosis or edema, non-tender, without signs of DVT. Medications and IVs Current Medications Medications (Trade) Dose Ordered Sig/Carol Route Start Time Stop Time Status Last Admin (NS Flush) 2 ml BID IV FLUSH 11/17/16 21:00 (NS Flush) 2 ml UNSCH PRN IV FLUSH 11/17/16 14:30 (Mylicon Chew) 80 mg QID PRN PO 11/17/16 14:30 (Motrin) 600 mg Q6H PRN PO 11/17/16 14:30 11/20/16 09:20 (Percocet 5-325 Mg) 1 tab Q4H PRN PO 11/17/16 14:30 11/20/16 02:27 (Percocet 5-325 Mg) 2 tab Q4H PRN PO 11/17/16 14:30 (Jennifer-Colace) 2 tab Q12H PRN PO 11/17/16 14:30 11/19/16 06:18 (Ambien) 5 mg HS PRN PO 11/17/16 14:30 (Zofran Inj) 4 mg Q6H PRN IV PUSH 11/17/16 14:30 11/17/16 15:36 (Compazine Inj) 10 mg BID PRN IM 11/17/16 18:30 11/17/16 19:09 Labetalol HCl 300 mg 300 mg Q12HR PO 11/20/16 09:00 11/20/16 09:16 (Lr 1000 ml Inj) 1,000 ml @ 75 mls/hr [id number] IV 11/20/16 10:00 (Calcium Gluconate Inj) 1 gm UNSCH PRN IV PUSH 11/20/16 10:00 Assessment/Plan Problem List: (1) S/P repeat low transverse Plan: ROUTINE (2) Anemia Plan: DAILY IRON PP (3) Gestational hyperglycemia Plan: INCREASE LABETALOL, MONITOR Assessment and Plan POD #3 REPEAT C/S PT DOING WELL BP ELEVATED THIS AM PROCARDIA GIVEN, LABETALOL CHANGED TO 300MG BID DENIES SEYMOUR OR VISUAL CHANGES PAIN WELL MANAGED WITH ORAL PAIN MEDICATION ROUTINE POST OP CARE Discharge Planning CONSIDER DC HOME TODAY IF BP ARE STABLE Yolanda Stroud Nov 20, 2016 13:49
== END 2016-11-20 15:38 | disposition home or self-care (01) | DRG 766 ==
LOC: H2EB 10:04 → H1EA 15:58
PROVIDERS: ADMIT Obstetrics & Gynecology; ATTEND Obstetrics & Gynecology
PROC: 10D00Z1 Extraction of Products of Conception, Low, Open Approach (ICD-10-PCS; principal; 2016-11-17)
PROC: 3E0P05Z Introduction of Adhesion Barrier into Female Reproductive, Open Approach (ICD-10-PCS; 2016-11-17)
DX: O34.211 Maternal care for low transverse scar from previous cesarean delivery (principal); O99.814 Abnormal glucose complicating childbirth; O99.02 Anemia complicating childbirth; O99.824 Streptococcus B carrier state complicating childbirth; Z3A.39 39 weeks gestation of pregnancy; Z37.0 Single live birth
CPT/HCPCS: 59025; 81001; 85025; 86850; 86900; 86901; 90715; J0690; J0780; J2274; J2405; J2590; J3010; J7120

== ENCOUNTER 2016-11-28 11:18 | Emergency (ER) | payer MEDICAID ==
[2016-11-28] VITALS (9 sets, daily range): BP systolic 110–218; BP diastolic 63–111; PULSE 58–99; RESP 20
[~2016-11-28 11:18] MED LIST changes: -BACT800T5 PO; +IBUP-232 PO; +LABE300T PO; +OXYC1TAB63 PO; +PNVPAK
[2016-11-28] MEDS ORDERED: NIFEdipine 10 MG CAP PO PRN (11:45)
[2016-11-28] MEDS ORDERED: NIFEdipine 10 MG CAP ONE ×2 (12:04→12:25)
[2016-11-28] MEDS ORDERED: NIFEdipine 20 MG CAP PO STA (12:24)
[2016-11-28 12:37] LABS: ANION GAP 7 MEQ/L (5-15); AST (GOT) 26 U/L (15-37); BICARBONATE 29.5 MEQ/L (21.0-32.0); BLOOD UREA NITROGEN 7 MG/DL (7-18); CHLORIDE 104 MEQ/L (98-107); GLOMERULAR FILTRATION RATE 118 ML/MIN (>89); POTASSIUM 3.5 MEQ/L (3.5-5.1); SODIUM (NA) 140 MEQ/L (136-145)
[2016-11-28 12:40] LABS: ALKALINE PHOSPHATASE 84 U/L (45-117); ALT (GPT) 30 U/L (10-53); TOTAL BILIRUBIN ADULT 0.4 MG/DL (0.2-1.0)
--- NOTE | 2016-11-28 12:44 | PD ---
HPI Chief Complaint High blood pressure Date Seen: Nov 28, 2016 Time Seen: 11:50 Travel History International Travel<30 Days: No Contact w/Intl Traveler<30Days: No Known Affected Area: No History of Present Illness HPI 26-year-old female now 12 days post op after repeat . Her was complicated by chronic hypertension. She reports now with blood pressures in the 220/110 range despite 300 mg of by mouth labetalol twice daily. She states her last dose was at 10 AM. She denies any headaches, visual changes abdominal pain, swelling and in fact states that she feels quite normal. Para: 3 : 3 History Past Medical History Narrative Medical Previously morbidly obese having been over 300 pounds at one time. She has had long-standing issues with intermittent hypertensive episodes in and out of . No other chronic medical conditions Past Surgical History Narrative Surgical 3 Family History Family History: Negative Social History Alcohol Use: No Tobacco Use: No Substance Abuse: No Allergies-Medications (Allergen,Severity, Reaction): Coded Allergies: Tomato (Verified Allergy, Severe, HIVES, 10/11/16) Home Meds Active Scripts Labetalol 300 Mg [id number] Mg PO Q12HR PRN (high blood pressure) #60 TAB Ref 2 Prov:Freddy Steven MD 11/20/16 Ibuprofen 600 Mg Auf496 Mg PO Q6H #30 TAB Ref 1 Prov:Freddy Steven MD 11/18/16 Oxycodone-Acetaminophen 5-325 mg Tab1 Tab PO Q4H #30 TAB Prov:Freddy Steven MD 11/18/16 Reported Medications W/O Vit A W/ Fe Carbo (Pnv Ob+Dha 27-1 & 250 mg)1 Toan Pak1 11/17/16 Review of Systems Except as stated in HPI: all other systems reviewed are Neg Physical Exam Vital Signs Date Time Temp Pulse Resp B/P Pulse Ox O2 Delivery O2 Flow Rate FiO2 11/28/16 12:16 58 218/110 11/28/16 12:01 58 211/111 11/28/16 11:53 20 11/28/16 11:52 59 197/109 11/28/16 11:42 66 197/107 Narrative GENERAL: Well-nourished, well-developed patient. SKIN: Warm and dry. HEAD: Normocephalic and atraumatic. EYES: No scleral icterus. No injection or drainage. ENT: No nasal drainage noted. Mucous membranes pink. Airway patent. NECK: Supple, trachea midline. No JVD. CARDIOVASCULAR: Regular rate and rhythm without murmurs, gallops, or rubs. RESPIRATORY: Breath sounds equal bilaterally. No accessory muscle use. ABDOMEN/GI: Abdomen soft, non-tender, bowel sounds present, no rebound, no guarding Incision is healing nicely External Genitalia: intact and normal in appearance BUS glands: [-] Cervix: [-] Dilatation: [-] Effacement: [-] Station: [-] Presentation: [-] Membranes: [intact or ruptured] Uterine Contractions: [-] EXTREMITIES: No cyanosis or edema. BACK: Nontender without obvious deformity. No CVA tenderness. NEUROLOGICAL: Awake and alert. Motor and sensory grossly within normal limits. Five out of 5 muscle strength in all muscle groups. Normal speech. Data Data Vital Signs Reviewed: Yes Orders Nifedipine (Procardia) (11/28/16 11:45) Cbc No Diff, Includes Plts (11/29/16 06:00) Protein Creat Ratio, Random Ur (11/28/16 11:32) Vital Signs (Adult) .ON ADMISSION (11/28/16 11:32) Comprehensive Metabolic Panel (11/28/16 11:38) Nifedipine (Procardia) (11/28/16 12:04) Nifedipine (Procardia) (11/28/16 12:25) Nifedipine (Procardia) (11/28/16 12:24) Labs Laboratory Tests Test 11/28/16 11:30 Urine Random Creatinine 184 Urine Random Total Protein 35 Urine Protein/Creatinine Ratio 0.19 MDM Medical Record Reviewed: Yes Narrative Course / MDM Assessment: Hypertensive crisis, rule out preeclampsia Plan: Preeclamptic labs, 10 mg of by mouth nifedipine now. Addendum 1432 the 20 mg second dose of nifedipine was sufficient to bring her blood pressures below severe threshold. The protein creatinine ratio confirm no significant proteinuria. The conference of metabolic panel was within normal limits as is the CBC. Assessment: hypertensive crisis without evidence of preeclampsia Plan: Patient will be discharged home on nifedipine extended release 30 mg by mouth daily. Precautions were reviewed with her regarding blood pressure monitoring. Diagnosis Diagnosis: Primary Impression: Hypertensive crisis Additional Impression: hypertension Disposition: DISCHARGE HOME Condition: Stable Nickisch,Flex A MD Nov 28, 2016 12:44
[2016-11-28 14:29] LABS: AUTOMATED NEUTROPHIL # 1.4 TH/MM3 (1.8-7.7); BASOPHIL % 0.4 % (0.0-2.0); EOSINOPHIL # 0.2 TH/MM3 (0-0.4); EOSINOPHIL % 3.9 % (0.0-4.0); HEMATOCRIT 34.9 % (35.0-46.0); HEMO FLAGS DIFF FINAL; LYMPH % 52.4 % (9.0-44.0); LYMPHOCYTE # 2.1 TH/MM3 (1.0-4.8); MEAN CORPUSCULAR HEMOGLOBIN 28.7 PG (27.0-34.0); MEAN CORPUSCULAR HGB CONC 33.8 % (32.0-36.0); NEUT % 34.3 % (16.0-70.0); PLATELET COUNT 243 TH/MM3 (150-450); RED CELL DISTRIBUTION WIDTH 14.8 % (11.6-17.2)
== END 2016-11-28 15:10 | disposition home or self-care (01) ==
LOC: HOBED 11:18
DX: I16.9 Hypertensive crisis, unspecified (principal)
CPT/HCPCS: 80053; 82570; 84156; 85025; 99283

== ENCOUNTER 2017-06-17 19:49 | Emergency (ER) | payer SELFPAY ==
[2017-06-17 20:12] VITALS: BP 143/92; PULSE 104; RESP 20; TEMP 100.2
[2017-06-17 20:40] LABS: BLOOD, URINE LARGE (NEG); GLUCOSE,URINE NEG (NEG); KETONE, URINE NEG (NEG); NITRITE,URINE POS (NEG); PH, URINE 7.5 (5.0-8.5)
[2017-06-17 20:48] LABS: URINE COLOR YELLOW (YELLW/STRAW); WBC, URINE 100-200 /hpf (0-5)
[2017-06-17 20:49] LABS: BACTERIA, URINE MANY /hpf; COMMENT (UR) CULTURE INDICATED; CULTURE IF INDICATED CULTURE INDICATED
[2017-06-17] MEDS ORDERED: LEVOFLOXACIN 750 MG TAB PO ONE (21:00)
[2017-06-17] MEDS ORDERED: LIDOCAINE HCL 1% PF 30 ML VIAL XX ONE (21:00)
[2017-06-17] MEDS ORDERED: ACETAMINOPHEN 500 MG CPLT PO ONE (21:00)
--- NOTE | 2017-06-17 21:07 | PD ---
HPI Chief Complaint: Flank/Kidney Pain Time Seen by Provider: 20:52 Travel History International Travel<30 days: No Contact w/Intl Traveler<30days: No Traveled to known affect area: No History of Present Illness HPI Patient is a 27-year-old female who presents to emergency room with complaints of bilateral flank pain. Patient reports that for the past 2 weeks, she has been having increased urinary urgency, frequency and dysuria. Patient denies any hematuria at this time. Patient reports that starting this week, she began to have bilateral back pain. Patient reports that she has been drinking plenty of fluids and trying home remedies for treatment of her UTI, reports that symptoms have been getting worse. Patient denies any fevers or chills, denies any nausea or vomiting, denies any vaginal discharge or bleeding. Patient reports concerns for possible UTI as she has had these in the past. PFSH Past Medical History Cancer: No Diminished Hearing: No Hepatitis: No Hypertension: Yes (during ) Psychiatric: No Immunizations Current: Yes Tetanus Vaccination: Unknown ?: Not LMP: IUD : 4 Para: 3 Miscarriage: 1 Dilation and Curettage (D&C): Yes Past Surgical History Abdominal Surgery: Yes (C SECTION X 2) AICD: No Section: Yes () Joint Replacement: No Pacemaker: No Other Surgery: Yes Social History Alcohol Use: Yes (VERY RARE) Tobacco Use: No Substance Use: No Allergies-Medications (Allergen,Severity, Reaction): Coded Allergies: tomato (Unverified Allergy, Severe, HIVES, 03/31/17) Reported Meds & Prescriptions Reported Meds & Active Scripts Active Review of Systems General / Constitutional: No: Fever, Chills Gastrointestinal: No: Nausea, Vomiting, Abdominal Pain Genitourinary: Positive: Urgency, Frequency, Nocturia, Flank Pain, No: Hematuria, Pelvic Pain, Vaginal Bleeding Neurologic: No: Weakness, Dizziness, Syncope, Focal Abnormalities, Headache Physical Exam Narrative GENERAL: No acute distress, nontoxic appearing SKIN: Focused skin assessment warm/dry. HEAD: Atraumatic. Normocephalic. EYES: Pupils equal and round. No scleral icterus. No injection or drainage. ENT: No nasal bleeding or discharge. Mucous membranes pink and moist. NECK: Trachea midline. No JVD. CARDIOVASCULAR: Regular rate and rhythm. No murmur appreciated. RESPIRATORY: No accessory muscle use. Clear to auscultation. Breath sounds equal bilaterally. GASTROINTESTINAL: Abdomen soft, non-tender, nondistended. Hepatic and splenic margins not palpable. MUSCULOSKELETAL: No obvious deformities. No clubbing. No cyanosis. No edema. NEUROLOGICAL: Awake and alert. No obvious cranial nerve deficits. Motor grossly within normal limits. Normal speech. PSYCHIATRIC: Appropriate mood and affect; insight and judgment normal. Data Data Last Documented VS Vital Signs Date Time Temp Pulse Resp B/P (MAP) Pulse Ox O2 Delivery O2 Flow Rate FiO2 06/17/17 20:55 100 06/17/17 20:12 100.2 20 143/92 (109) Orders Orders Urinalysis - C+S If Indicated (06/17/17 20:31) Ed Urine Pregnancytest Poc (06/17/17 20:31) Urine Culture (06/17/17 20:20) Ceftriaxone Inj (Rocephin Inj) (06/17/17 21:00) Lidocaine Pf 1% Inj (Xylocaine-Mpf 1% In (06/17/17 21:00) Levofloxacin (Levaquin) (06/17/17 21:00) Acetaminophen (Tylenol) (06/17/17 21:00) Labs Laboratory Tests Test 06/17/17 20:20 Urine Color YELLOW Urine Turbidity CLOUDY Urine pH 7.5 Urine Specific [place] 1.020 Urine Protein 100 mg/dL Urine Glucose (UA) NEG mg/dL Urine Ketones NEG mg/dL Urine Occult Blood LARGE Urine Nitrite POS Urine Bilirubin NEG Urine Leukocyte Esterase MOD Urine RBC 25-49 /hpf Urine WBC 100-200 /hpf Urine Squamous Epithelial Cells 6-8 /hpf Urine Bacteria MANY /hpf Microscopic Urinalysis Comment CULTURE INDICATED MDM Medical Decision Making Medical Screen Exam Complete: Yes Emergency Medical Condition: Yes Medical Record Reviewed: Yes Interpretation(s) Vital Signs Date Time Temp Pulse Resp B/P (MAP) Pulse Ox O2 Delivery O2 Flow Rate FiO2 06/17/17 20:55 100 06/17/17 20:12 100.2 104 20 143/92 (109) Laboratory Tests Test 06/17/17 20:20 Urine Color YELLOW (YELLW/STRAW) Urine Turbidity CLOUDY (CLEAR) Urine pH 7.5 (5.0-8.5) Urine Specific [place] 1.020 (1.002-1.035) Urine Protein 100 mg/dL (NEG-TRACE) Urine Glucose (UA) NEG mg/dL (NEG) Urine Ketones NEG mg/dL (NEG) Urine Occult Blood LARGE (NEG) Urine Nitrite POS (NEG) Urine Bilirubin NEG (NEG) Urine Leukocyte Esterase MOD (NEG) Urine RBC 25-49 /hpf (0-3) Urine WBC 100-200 /hpf (0-5) Urine Squamous Epithelial Cells 6-8 /hpf (0-5) Urine Bacteria MANY /hpf (NONE) Microscopic Urinalysis Comment CULTURE INDICATED Differential Diagnosis UTI, pyelonephritis Narrative Course 27-year-old female who presents to emergency room with complaints of urinary urgency, frequency as well as bilateral flank pain which has been ongoing for the past 2 weeks. UA is consistent with 100-200 white blood cells, 25-49 red blood cells, many bacteria, positive nitrites, moderate leuk esterase. Patient' s with no flank pain at this time, patient with most likely UTI versus pyelonephritis. Patient is well-appearing in the emergency room, patient's UA consistent with UTI. Plan to treat with IM dose of Rocephin as well as an oral dose of Levaquin. Patient will follow-up with all cultures from today. Signs and symptoms of when to return to the ER was reviewed with patient in detail. Patient will return to the ER as needed. Diagnosis Primary Impression: Pyelonephritis Patient Instructions: General Instructions Additional Instructions: Please follow up with your primary care doctor in 1-2 days Return to the ER if symptoms worsen or progress or if you develops any fevers or chills Return to the ER as needed Please take all antibiotics as prescribed Please follow-up with all cultures from today Med/Other Pt SpecificInfo: Prescription(s) given Scripts Levofloxacin (Levaquin) 750 Mg Tablet 750 MG PO DAILY for Infection for 5 Days, #5 TAB 0 Refills Prov: Michelle Saldivar DO 06/17/17 Disposition: 01 DISCHARGE HOME Condition: Stable Michelle Saldivar DO Jun 17, 2017 21:07
[2017-06-17] MEDS ORDERED: LEVA750T9 PO (21:08)
[2017-06-17 21:35] VITALS: BP 163/87; PULSE 90; RESP 16; O2SAT 99
== END 2017-06-17 21:54 | disposition home or self-care (01) ==
LOC: PHED 19:49
DX: N12 Tubulo-interstitial nephritis, not specified as acute or chronic (principal); B96.20 Unspecified Escherichia coli [E. coli] as the cause of diseases classified elsewhere
CPT/HCPCS: 81001; 84703; 87077; 87086; 87186; 96372; 99284; J0696

== ENCOUNTER 2017-11-24 08:05 | Emergency (ER) | payer MEDICAID ==
[~2017-11-24] VITALS: Ht 167.6 cm; Wt 94.5 kg
[~2017-11-24 08:05] MED LIST changes: -IBUP-232 PO; -LABE300T PO; +LEVA750T9 PO; -OXYC1TAB63 PO; -PNVPAK
[2017-11-24 08:07] VITALS: BP 150/84; PULSE 92; RESP 16; TEMP 99.2; O2SAT 98
--- NOTE | 2017-11-24 08:33 | PD ---
HPI Chief Complaint: GI Complaint Time Seen by Provider: 08:31 Travel History International Travel<30 days: No Contact w/Intl Traveler<30days: No Traveled to known affect area: No History of Present Illness HPI This 27-year-old female started having sore throat last night. She then started vomiting and she is vomited for 5 times. She says she does have pain in her throat. He is generally healthy. She is not . The pain in her throat is moderate. It is aggravated by movement and swallowing PFSH Past Medical History Cancer: No Diminished Hearing: No Hepatitis: No Hypertension: Yes (during ) Psychiatric: No Immunizations Current: Yes Tetanus Vaccination: < 5 Years ?: Not LMP: mirina : 4 Para: 3 Miscarriage: 1 Dilation and Curettage (D&C): Yes Past Surgical History Abdominal Surgery: Yes (C SECTION X 2) AICD: No Section: Yes () Joint Replacement: No Pacemaker: No Other Surgery: Yes Social History Alcohol Use: Yes (VERY RARE) Tobacco Use: No Substance Use: No Allergies-Medications (Allergen,Severity, Reaction): Coded Allergies: tomato (Unverified Allergy, Severe, HIVES, 11/24/17) Reported Meds & Prescriptions Reported Meds & Active Scripts Active No Active Prescriptions or Reported Medications Review of Systems General / Constitutional: Positive: Chills Eyes: No: Diploplia HENT: Positive: Sore Throat Cardiovascular: No: Chest Pain or Discomfort, Palpitations Respiratory: No: Cough Gastrointestinal: Positive: Vomiting Genitourinary: No: Urgency, Frequency Musculoskeletal: No: Myalgias Skin: No Rash Physical Exam Narrative GENERAL: Well-developed female SKIN: Focused skin assessment warm/dry. HEAD: Atraumatic. Normocephalic. EYES: Pupils equal and round. No scleral icterus. No injection or drainage. ENT: No nasal bleeding or discharge. Mucous membranes pink and moist. Posterior pharynx shows the tonsils to be enlarged and erythematous with yellow exudate NECK: Trachea midline. No JVD. CARDIOVASCULAR: Regular rate and rhythm. No murmur appreciated. RESPIRATORY: No accessory muscle use. Clear to auscultation. Breath sounds equal bilaterally. GASTROINTESTINAL: Abdomen soft, non-tender, nondistended. Hepatic and splenic margins not palpable. MUSCULOSKELETAL: No obvious deformities. No clubbing. No cyanosis. No edema. NEUROLOGICAL: Awake and alert. No obvious cranial nerve deficits. Motor grossly within normal limits. Normal speech. PSYCHIATRIC: Appropriate mood and affect; insight and judgment normal. Data Data Last Documented VS Vital Signs Date Time Temp Pulse Resp B/P (MAP) Pulse Ox O2 Delivery O2 Flow Rate FiO2 11/24/17 08:07 99.2 92 16 150/84 (106) 98 Orders Orders Urinalysis - C+S If Indicated (11/24/17 08:15) Ed Urine Pregnancytest Poc (11/24/17 08:15) Complete Blood Count With Diff (11/24/17 08:31) Basic Metabolic Panel (Bmp) (11/24/17 08:31) Group A Rapid Strep Screen (11/24/17 08:31) Sodium Chlor 0.9% 1000 Ml Inj (Ns 1000 M (11/24/17 08:45) Ondansetron Inj (Zofran Inj) (11/24/17 08:45) Ceftriaxone Inj (Rocephin Inj) (11/24/17 08:45) Ketorolac Inj (Toradol Inj) (11/24/17 08:45) Labs Laboratory Tests Test 11/24/17 08:18 11/24/17 08:40 Urine Collection Type VOIDED Urine Color YELLOW Urine Turbidity CLEAR Urine pH 7.5 Urine Specific [place] 1.015 Urine Protein NEG mg/dL Urine Glucose (UA) NEG mg/dL Urine Ketones NEG mg/dL Urine Occult Blood MOD Urine Nitrite NEG Urine Bilirubin NEG Urine Urobilinogen 0.2 MG/DL Urine Leukocyte Esterase NEG Urine WBC 0-2 /hpf Urine Squamous Epithelial Cells 0-3 /hpf Microscopic Urinalysis Comment CULT NOT INDICATED White Blood Count 10.0 TH/MM3 Red Blood Count 4.26 MIL/MM3 Hemoglobin 11.6 GM/DL Hematocrit 36.0 % Mean Corpuscular Volume 84.7 FL Mean Corpuscular Hemoglobin 27.2 PG Mean Corpuscular Hemoglobin Concent 32.1 % Red Cell Distribution Width 13.6 % Platelet Count 162 TH/MM3 Mean Platelet Volume 10.0 FL Neutrophils (%) (Auto) 85.7 % Lymphocytes (%) (Auto) 9.8 % Monocytes (%) (Auto) 3.8 % Eosinophils (%) (Auto) 0.0 % Basophils (%) (Auto) 0.7 % Neutrophils # (Auto) 8.5 TH/MM3 Lymphocytes # (Auto) 1.0 TH/MM3 Monocytes # (Auto) 0.4 TH/MM3 Eosinophils # (Auto) 0.0 TH/MM3 Basophils # (Auto) 0.1 TH/MM3 CBC Comment DIFF FINAL Differential Comment Blood Urea Nitrogen 8 MG/DL Creatinine 0.81 MG/DL Random Glucose 106 MG/DL Calcium Level 8.6 MG/DL Sodium Level 136 MEQ/L Potassium Level 3.6 MEQ/L Chloride Level 104 MEQ/L Carbon Dioxide Level 26.7 MEQ/L Anion Gap 5 MEQ/L Estimat Glomerular Filtration Rate 103 ML/MIN MDM Medical Decision Making Medical Screen Exam Complete: Yes Emergency Medical Condition: Yes Medical Record Reviewed: Yes Differential Diagnosis Differential includes strep throat, viral syndrome, mono Narrative Course Throat swab was positive for group A strep. She has been given IV fluids with some improvement. She will be released with prescription for Zofran and amoxicillin Diagnosis Primary Impression: Strep throat Scripts Ondansetron Odt (Zofran Odt) 4 Mg Tab 4 MG SL Q6HR Y for Nausea/Vomiting, #10 TAB 0 Refills Prov: Adam Eugene MD 11/24/17 Amoxicillin (Amoxicillin) 500 Mg Cap 500 MG PO TID for Infection for 7 Days, CAP 0 Refills Prov: Adam Eugene MD 11/24/17 Disposition: 01 DISCHARGE HOME Condition: Stable Adam Eugene MD Nov 24, 2017 08:33
[2017-11-24] MEDS ORDERED: cefTRIAXone INJ 1,000 MG in SODIUM CHLORIDE 0.9% INJ 100 ML IV ONE (08:45)
[2017-11-24] MEDS ORDERED: KETOROLAC TROMETHAMINE 30 MG/ML (IVP) VIAL IV PUSH ONE (08:45)
[2017-11-24] MEDS ORDERED: SODIUM CHLOR 0.9% 1000 ML INJ 1,000 ML IV ONE (08:45)
[2017-11-24] MEDS ORDERED: ONDANSETRON HCL 4 MG/2 ML VIAL IV PUSH ONE (08:45)
[2017-11-24 08:46] LABS: BILIRUBIN, URINE NEG (NEG); BLOOD, URINE MOD (NEG); GLUCOSE,URINE NEG (NEG); KETONE, URINE NEG (NEG); NITRITE,URINE NEG (NEG); PH, URINE 7.5 (5.0-8.5); URINE COLOR YELLOW (YELLW/STRAW); URINE LEUKOCYTE ESTERASE NEG (NEG)
[2017-11-24 08:52] LABS: SQUAMOUS EPITHELIAL CELL URINE 0-3 /hpf (0-5); WBC, URINE 0-2 /hpf (0-5)
[2017-11-24 09:10] LABS: CALCIUM 8.6 MG/DL (8.5-10.1)
[2017-11-24 09:11] LABS: BICARBONATE 26.7 MEQ/L (21.0-32.0)
[2017-11-24 09:14] LABS: CREATININE 0.81 MG/DL (0.50-1.00)
[2017-11-24 09:23] LABS: AUTOMATED NEUTROPHIL # 8.5 TH/MM3 (1.8-7.7); BASOPHIL # 0.1 TH/MM3 (0-0.2); BASOPHIL % 0.7 % (0.0-2.0); HEMOGLOBIN 11.6 GM/DL (11.6-15.3); LYMPH % 9.8 % (9.0-44.0); MEAN CELL VOLUME 84.7 FL (80.0-100.0); MEAN CORPUSCULAR HEMOGLOBIN 27.2 PG (27.0-34.0); MEAN CORPUSCULAR HGB CONC 32.1 % (32.0-36.0); MONO % 3.8 % (0.0-8.0); MONOCYTE # 0.4 TH/MM3 (0-0.9); NEUT % 85.7 % (16.0-70.0); PLATELET COUNT 162 TH/MM3 (150-450); RED BLOOD COUNT 4.26 MIL/MM3 (4.00-5.30); RED CELL DISTRIBUTION WIDTH 13.6 % (11.6-17.2)
[2017-11-24] MEDS ORDERED: AMOX500C PO (09:46)
[2017-11-24] MEDS ORDERED: ZOFR4TAB3 SL (09:46)
[2017-11-24 10:27] VITALS: BP 148/82
== END 2017-11-24 10:31 | disposition home or self-care (01) ==
LOC: PHED 08:05
DX: R11.2 Nausea with vomiting, unspecified (principal); J02.0 Streptococcal pharyngitis; B95.0 Streptococcus, group A, as the cause of diseases classified elsewhere
CPT/HCPCS: 80048; 81001; 84703; 85025; 87880; 96361; 96365; 96375; 99284; J0696; J1885; J2405; J7030